=== PATIENT | male | born 1960 | race Caucasian/White ===

== ENCOUNTER 2017-09-07 11:29 | Emergency (ER) | payer SELFPAY ==
[2017-09-07 14:03] VITALS: BP 121/82
--- NOTE | 2017-09-07 14:04 | UC ---
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 - History of Current Complaint Chief Complaint: UCGeneralIllness Stated Complaint: MED REFILL Time Seen by Provider: 09/07/17 13:56 Hx Obtained From: Patient Onset/Duration: Sudden Onset, Lasting Days Timing: Constant Onset Severity: Mild Current Severity: None Associated Signs & Symptoms: Positive: SOB - Allergy/Home Medications Allergies/Adverse Reactions: Allergies Allergy/AdvReac Type Severity Reaction Status Date / Time No Known Allergies Allergy Verified 09/07/17 13:52 PMH/Surg Hx/FS Hx/Imm Hx Previously Healthy: Yes - Surgical History Surgical History: Yes Surgery Procedure, Year, and Place: appy - Family History Known Family History: Positive: Cardiac Disease - Social History Alcohol Use: Daily Alcohol Amount: 6 pack beer every other day Substance Use Type: None Smoking Status (MU): Heavy Every Day Tobacco Smoker Type: Cigarettes Amount Used/How Often: 1 ppd Review of Systems Constitutional: Negative Skin: Negative Eyes: Negative ENT: Negative Respiratory: Shortness Of Breath Cardiovascular: Negative Gastrointestinal: Negative Genitourinary: Negative Motor: Negative Neurovascular: Negative Musculoskeletal: Negative Neurological: Negative Psychological: Negative Is Patient Immunocompromised?: No All Other Systems Reviewed And Are Negative: Yes Physical Exam Triage Information Reviewed: Yes Appearance: Well-Appearing, No Pain Distress, Well-Nourished Vital Signs: Initial Vital Signs Temp 98.1 F 09/07/17 13:52 Pulse 78 09/07/17 13:52 Resp 16 09/07/17 13:52 BP 121/82 09/07/17 13:52 Pulse Ox 98 09/07/17 13:52 Vital Signs Reviewed: Yes Eye Exam: Normal ENT Exam: Normal Dental Exam: Normal Neck exam: Normal Respiratory: Positive: Chest non-tender, No respiratory distress, No accessory muscle use, Decreased breath sounds Cardiovascular Exam: Normal Cardiovascular: Positive: RRR, No Murmur, Pulses Normal, Brisk Capillary Refill Abdominal Exam: Normal Abdomen Description: Positive: Nontender, No Organomegaly, Soft Bowel Sounds: Positive: Present Musculoskeletal Exam: Normal Musculoskeletal: Positive: Strength Intact, ROM Intact, No Edema Neurological Exam: Normal Neurological: Positive: Alert, Muscle Tone Normal Psychological Exam: Normal Skin Exam: Normal Course/Dx - Course Course Of Treatment: hx obtained, exam performed ,meds reviewed and refilled, PCP list given. - Differential Dx - Multi-Symptom Provider Diagnoses: LUng cancer with mets. Seizures Discharge - Discharge Plan Condition: Stable Disposition: HOME Prescriptions: Dexamethasone TAB* [Decadron TAB*] 1 tab PO BID #14 tab levETIRAcetam TAB* [Keppra TAB*] 1 tab PO BID #14 tab Patient Education Materials: Dexamethasone (By mouth), Levetiracetam (By mouth) Referrals: Non Staff,Doctor [Primary Care Provider] - Additional Instructions: 1. follow up with your new primary for follow up with medications
== END 2017-09-07 14:17 | disposition home or self-care (01) ==
LOC: UCCORT 11:29
DX: C34.90 Malignant neoplasm of unspecified part of unspecified bronchus or lung (principal); R56.9 Unspecified convulsions; Z76.0 Encounter for issue of repeat prescription; R06.02 Shortness of breath; Z90.89 Acquired absence of other organs; F17.210 Nicotine dependence, cigarettes, uncomplicated
CPT/HCPCS: 99212; G0463

== ENCOUNTER 2018-01-31 09:32 | Emergency (ER) | payer MEDICAID ==
[2018-01-31 10:30] VITALS: BP 140/90
[2018-01-31] MEDS ORDERED: Ketorolac INJ* 60 MG/2 ML VIAL IM ONE (11:02)
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
--- NOTE | 2018-01-31 11:32 | RAD ---
INDICATION: Severe back pain, history of lung cancer. COMPARISON: There are no prior studies available for comparison. TECHNIQUE: 3 views of the lumbar spine were obtained including lateral, AP and a coned-down lateral view of the lumbar sacral junction. FINDINGS: There is a mild lumbar scoliosis convex toward the right side. The vertebra are otherwise in normal alignment. No fracture or significant focal osseous abnormality is seen. There is moderate degenerative disc disease at the L5-S1 level. The remaining disc spaces appear maintained. IMPRESSION: 1. MODERATE DEGENERATIVE DISC DISEASE AT THE L5-S1 LEVEL. 2. IF THE PATIENT'S SYMPTOMS PERSIST CONSIDER MR IMAGING FOR FURTHER EVALUATION.
== END 2018-01-31 11:57 | disposition left against medical advice (07) ==
LOC: UCCORT 09:32
DX: M54.9 Dorsalgia, unspecified (principal); C34.90 Malignant neoplasm of unspecified part of unspecified bronchus or lung; C77.9 Secondary and unspecified malignant neoplasm of lymph node, unspecified; C79.31 Secondary malignant neoplasm of brain
CPT/HCPCS: 72100; 96372; 99212; G0463; J1885